=== PATIENT | female | born 1970 ===

== ENCOUNTER 2019-12-15 08:50 | Day surgery (SDC) | payer OTHER | END 2019-12-15 22:52 | disposition home or self-care (01) | LOC: CIR.AMB 08:50 | PROVIDERS: ATTEND Colon & Rectal Surgery | DX: K60.3 Anal fistula (principal); Z20.828 Contact with and (suspected) exposure to other viral communicable diseases ==

== ENCOUNTER 2022-11-20 05:15 | Day surgery (SDC) | payer OTHER ==
[~2022-11-20] VITALS: Ht 154.9 cm; Wt 103.9 kg
== END 2022-11-20 14:40 | disposition home or self-care (01) ==
LOC: CIR.AMB 05:15
PROVIDERS: ATTEND Colon & Rectal Surgery
DX: K60.3 Anal fistula (principal); Z91.041 Radiographic dye allergy status; K60.5 Anorectal fistula; K92.1 Melena